=== PATIENT | male | born 1965 | race Caucasian/White ===

== ENCOUNTER 2017-12-22 15:58 | Emergency (ER) | payer OTHER ==
[~2017-12-22] VITALS: Ht 188 cm; Wt 198.1 kg
[~2017-12-22 15:58] MED LIST: BENAZEPRIL-HCT1 EAC2 PO; GLUCOTROL XL2.5 MG PO; METFORMIN HCL500 MG PO; METOCLOPRAMIDE10 MG PO; NAPROXEN500 M1 PO
[2017-12-22] MEDS ORDERED: METOPROLOL SUCC25 MG PO (18:13)
[2017-12-22] MEDS ORDERED: METFORMIN HCL1000 M3 PO (18:13)
[2017-12-22] MEDS ORDERED: ADVAIR 250/501 DISK IH (18:14)
[2017-12-22 19:36] LABS: BASOPHIL (%) 0.5 % (0-1); BASOPHIL COUNT 0.1 K/uL (0-0.1); EOSINOPHIL (%) 2.3 % (0-5); EOSINOPHIL COUNT 0.3 K/uL (0-0.3); HEMATOCRIT 43.1 % (38.0-50.0); HEMOGLOBIN 14.1 G/DL (12.5-16.6); IMMATURE GRANULOCYTE (%) 0.4 % (0.0-0.7); LYMPHOCYTE (%) 22.6 % (15-42); LYMPHOCYTE COUNT 3.1 K/uL (1.0-2.8); MCH 29.1 PG (29.0-34.0); MCHC 32.7 G/DL (30.0-36.0); MCV 88.9 FL (86-99); MONOCYTE (%) 5.7 % (3-12); MONOCYTE COUNT 0.8 K/uL (0-0.8); NEUTROPHIL (%) 68.5 % (45-76); NEUTROPHIL COUNT 9.4 K/uL (1.8-6.4); PLATELET COUNT 340 K/uL (156-360); RBC DIS.WIDTH-CV 14.1 % (11.8-14.6); RBC DIS.WIDTH-SD 45.9 % (39-53); RED BLOOD COUNT 4.85 M/uL (4.00-5.50); WHITE BLOOD COUNT 13.7 K/uL (4.1-10.2)
[2017-12-22 19:45] LABS: ALBUMIN 3.8 g/dL (3.2-4.8); CHLORIDE 103 mEq/L (99-109); POTASSIUM 3.6 mEq/L (3.7-5.4); SODIUM 139 mEq/L (136-147)
[2017-12-22 19:47] LABS: GLUCOSE 113 mg/dL (70-99)
[2017-12-22 19:48] LABS: TOTAL PROTEIN 7.3 g/dL (6.4-8.3)
[2017-12-22 19:49] LABS: TOTAL BILIRUBIN 0.7 mg/dL (0.0-1.0)
[2017-12-22 19:51] LABS: ALKALINE PHOSPHATASE 70 IU/L (3-129); CREATININE 0.8 mg/dL (0.6-1.3); GFR ESTIMATE (CALCULATED) > 59 mL/min/ (58.99-99999)
[2017-12-22 19:52] LABS: UREA NITROGEN (BUN) 13 mg/dL (9-23)
[2017-12-22 19:53] LABS: AST (GOT) 13 IU/L (2-34)
[2017-12-22 19:54] LABS: ALT (GPT) 15 IU/L (3-49)
[2017-12-22 20:58] VITALS: BP 113/76
== END 2017-12-22 20:58 | disposition home or self-care (01) ==
LOC: EME 15:58
PROVIDERS: Physician Assistant Medical
DX: I95.1 Orthostatic hypotension (principal); E86.0 Dehydration; E11.9 Type 2 diabetes mellitus without complications; I10 Essential (primary) hypertension; Z79.84 Long term (current) use of oral hypoglycemic drugs; J45.909 Unspecified asthma, uncomplicated; K21.9 Gastro-esophageal reflux disease without esophagitis
CPT/HCPCS: 80053; 82948; 85025; 99281; 99284; J7030

== ENCOUNTER 2018-04-17 19:53 | Observation (INO) | payer OTHER ==
[~2018-04-17] VITALS: Ht 188 cm; Wt 198.4 kg
[~2018-04-17 19:53] MED LIST changes: +ADVAIR 500/501 DISK IH; +METFORMIN HCL1000 M3 PO; +METOPROLOL SUCC25 MG PO
[2018-04-17 20:45] LABS: HEMATOCRIT 43.2 % (38.0-50.0); HEMOGLOBIN 13.9 G/DL (12.5-16.6); MCHC 32.2 G/DL (30.0-36.0); PLATELET COUNT 336 K/uL (156-360); RBC DIS.WIDTH-CV 14.2 % (11.8-14.6); RBC DIS.WIDTH-SD 46.7 % (39-53); WHITE BLOOD COUNT 13.5 K/uL (4.1-10.2)
[2018-04-17 21:35] LABS: TROP-I INTERPRETATION NEGATIVE; TROPONIN-I < 0.01 ng/mL (0.0-0.30)
[2018-04-17 21:57] LABS: CHLORIDE 102 MEQ/L (99-109); POTASSIUM 4.1 MEQ/L (3.7-5.4); SODIUM 140 MEQ/L (136-147)
[2018-04-17 22:03] LABS: CREATININE 0.8 MG/DL (0.6-1.3); GFR ESTIMATE (CALCULATED) > 59 mL/min/ (58.99-99999); GLUCOSE 137 mg/dL (70-99); UREA NITROGEN (BUN) 12 mg/dL (9-23)
[2018-04-17 22:57] LABS: ALBUMIN 4.1 G/DL (3.2-4.8); DIRECT BILIRUBIN 0.1 mg/dL (0.0-0.3); TOTAL BILIRUBIN 0.5 MG/DL (0.0-1.0)
[2018-04-17 23:04] LABS: ALKALINE PHOSPHATASE 66 IU/L (3-129); ALT (GPT) 12 IU/L (3-49); AST (GOT) 11 IU/L (2-34); TOTAL PROTEIN 7.4 G/DL (6.4-8.3)
[2018-04-17 23:07] LABS: LIPASE < 3 U/L (1.0-51.0)
[2018-04-18] MEDS ORDERED: PREVACID30 MG PO (00:19)
[2018-04-18] MEDS ORDERED: PROTOPIC 0.1% O30 GM PO (02:06)
[2018-04-18] MEDS ORDERED: CALCITRENE60 GM TP (02:07)
[2018-04-18] MEDS ORDERED: BETAMETHASONE V15 G1 TP (02:09)
[2018-04-18 03:10] VITALS: BP 138/77
[2018-04-18 05:46] LABS: TROP-I INTERPRETATION NEGATIVE; TROPONIN-I < 0.01 ng/mL (0.0-0.30)
[2018-04-18 05:59] LABS: HDL CHOLESTEROL 42 MG/DL (Desirable>=40); LDL CHOLESTEROL 53 mg/dL (Desirable<100); NON-HDL CHOLESTEROL 77 mg/dL (Desirable<160); TOTAL CHOLESTEROL 119 mg/dL (Desirable<200); TRIGLYCERIDES 118 MG/DL (Normal: <150)
[2018-04-18 10:39] LABS: TROP-I INTERPRETATION NEGATIVE; TROPONIN-I < 0.01 ng/mL (0.0-0.30)
[2018-04-18 10:40] LABS: HEMATOCRIT 40.7 % (38.0-50.0); HEMOGLOBIN 12.9 G/DL (12.5-16.6); MCH 28.5 PG (29.0-34.0); MCHC 31.7 G/DL (30.0-36.0); PLATELET COUNT 327 K/uL (156-360); RBC DIS.WIDTH-CV 14.4 % (11.8-14.6); RBC DIS.WIDTH-SD 47.7 % (39-53); RED BLOOD COUNT 4.52 M/uL (4.00-5.50); WHITE BLOOD COUNT 9.7 K/uL (4.1-10.2)
[2018-04-18 11:28] VITALS: BP 140/80
[2018-04-18] MEDS ORDERED: ASPIRIN81 M2 PO (13:31)
== END 2018-04-18 14:31 | disposition home or self-care (01) ==
LOC: EME 19:53 → EDOF 22:54 → 4SOUTH 22:54 → EDOF 22:54 → ENRESERV 22:55 → 4SOUTH 04-18 00:16
PROVIDERS: Emergency Medicine; Hospitalist; Physician Assistant Medical
DX: R07.9 Chest pain, unspecified (principal); J44.9 Chronic obstructive pulmonary disease, unspecified; E11.65 Type 2 diabetes mellitus with hyperglycemia; E66.01 Morbid (severe) obesity due to excess calories; Z68.43 Body mass index [BMI] 50.0-59.9, adult; I10 Essential (primary) hypertension; E78.5 Hyperlipidemia, unspecified; G47.33 Obstructive sleep apnea (adult) (pediatric); Z91.19 Patient's noncompliance with other medical treatment and regimen; Z85.828 Personal history of other malignant neoplasm of skin; Z86.010 Personal history of colon polyps; Z87.442 Personal history of urinary calculi; Z90.49 Acquired absence of other specified parts of digestive tract; Z79.84 Long term (current) use of oral hypoglycemic drugs
CPT/HCPCS: 71046; 80048; 80061; 80076; 82948; 83690; 84484; 85027; 85379; 93005; 94640; 94799; 99281; 99284; G0378; J1650

== ENCOUNTER → 2018-05-04 | Outpatient (CLI) | payer OTHER ==
[~2018-05-04] MED LIST changes: +ASPIRIN81 M2 PO; +BETAMETHASONE V15 G1 TP; +CALCITRENE60 GM TP; +PREVACID30 MG PO; +PROTOPIC 0.1% O30 GM PO
== END | disposition home or self-care (01) ==
LOC: NUC 09:00
DX: I05.1 Rheumatic mitral insufficiency (principal); I07.1 Rheumatic tricuspid insufficiency; R07.9 Chest pain, unspecified
CPT/HCPCS: 78454; 78999; 93017; 93306; A9500; J2785